=== PATIENT | female | born 1975 | race African-American/Black ===

== ENCOUNTER 2021-03-05 18:25 | Emergency (ER) | payer MEDICAID, OTHER ==
[~2021-03-05] VITALS: Ht 177.8 cm; Wt 86.2 kg
[2021-03-05 18:29] VITALS: BP 111/70
[2021-03-08] MEDS ORDERED: OCTREOTIDE ACETATE 100 MCG/ML VL ONE (16:51)
== END 2021-03-06 00:59 | disposition left against medical advice (07) ==
LOC: ER 18:27
DX: R07.89 Other chest pain (principal); J02.9 Acute pharyngitis, unspecified; Z53.21 Procedure and treatment not carried out due to patient leaving prior to being seen by health care provider
CPT/HCPCS: 93005

== ENCOUNTER 2021-10-13 14:45 | Emergency (ER) | payer OTHER ==
[~2021-10-13] VITALS: Ht 177.8 cm; Wt 84.0 kg
[2021-10-13 15:57] LABS: Basophils # (auto) 0 10 ^3/uL (0-0.2); Basophils % (auto) 0.4 % (0.0-2.0); Eosinophils # (auto) 0 10 ^3/uL (0-0.8); Eosinophils % (auto) 0.5 % (0.0-7.0); Hematocrit 40.7 % (36.0-46.0); Hemoglobin 13.3 g/dL (12.2-16.2); Lymphocytes # (auto) 2.9 10 ^3/uL (0.4-5.4); Mean Corpuscular Hemoglobin 28.2 pg (28.0-32.0); Mean Corpuscular Hgb Conc. 32.7 g/dL (32.0-36.0); Mean Corpuscular Volume 86.1 fL (80.0-100.0); Monocytes # (auto) 0.5 10 ^3/uL (0-1.3); Neutrophils # (auto) 4.8 10 ^3/uL (1.6-8.6); Neutrophils % (auto) 58.1 % (37.0-80.0); Nucleated Red Blood Cells % 0.1 %; Red Blood Cells 4.73 10^6/uL (4.0-5.20); Red Cell Distribution Width 12.7 % (11.8-14.3); White Blood Cell 8.3 10^3/uL (4.4-10.8)
[2021-10-13 16:09] LABS: Albumin 4.2 g/dL (3.4-5.0); Calcium 9.2 mg/dL (8.5-10.1); Potassium 4.1 mmol/L (3.5-5.1)
[2021-10-13 16:12] LABS: BUN/Creatinine Ratio 10.8; Bilirubin, Total 0.9 mg/dL (0.2-1.0); Total Protein 7.9 g/dL (6.4-8.2)
[2021-10-13 19:58] VITALS: BP 129/89
== END 2021-10-13 20:01 | disposition home or self-care (01) ==
LOC: ER 14:45
DX: F41.9 Anxiety disorder, unspecified (principal); I77.89 Other specified disorders of arteries and arterioles; F17.210 Nicotine dependence, cigarettes, uncomplicated; Z90.710 Acquired absence of both cervix and uterus; Z90.89 Acquired absence of other organs
CPT/HCPCS: 36415; 71045; 80053; 84484; 85025; 93005